=== PATIENT | female | born 1990 | race African-American/Black ===

== ENCOUNTER 2025-01-14 16:53 | Emergency (ER) | payer MEDICARE, MEDICAID, SELFPAY ==
[2025-01-14] VITALS (9 sets, daily range): BP systolic 118–160; BP diastolic 74–102; PULSE 75–94; RESP 15–21; TEMP 36.6–37.1; O2SAT 97–99
--- NOTE | 2025-01-14 17:00 | RT.EKG_ITS ---
APPROVED REPORT Exam: Resting ECG Reason for Exam: Back Pain Patient Location: E HR:87 bpm ECG Measurements Heart Rate 87 AXIS MD 165 P 15 QRSd 96 QRS -6 QT 349 T 40 QTc 420 Conclusion Sinus rhythm...normal P axis, V-rate 60- 99
--- NOTE | 2025-01-14 17:15 | DI.CT_ITS ---
Exam(s) CT CHEST PE ABD PELVIS W EXAM: CT CHEST PE ABD PELVIS W CLINICAL HISTORY: right sided chest and abdomen pain. TECHNIQUE: Imaging Protocol: Axial computed tomography images with coronal and sagittal reformatted images were created and reviewed. Computer aided detection (CAD) was utilized. CONTRAST MATERIAL: Intravenous: Omnipaque 350 Contrast volume:99 ml Oral: no COMPARISON: No exams were available for comparison FINDINGS: CHEST: Pulmonary parenchyma: No consolidation. No dominant measurable mass. Tracheobronchial tree: No bronchiectasis. No mucous plugging.No bronchial wall thickening. Pleura: No effusion or pneumothorax. Mediastinum: Within normal limits. Pulmonary arteries: No visible emboli. Cardiovascular: No pericardial effusion. Thoracic aorta non-dilated. Bones: Unremarkable for age. No lytic or blastic lesions.No compression fractures. Soft tissues: Unremarkable. ABDOMEN and PELVIS: Liver: Mildly enlarged. Mild hepatic steatosis. No suspicious mass. Gallbladder and biliary tract: Gallbladder is collapse. No evidence of stones or wall thickening. N o biliary dilatation. Pancreas: Normal density, no abnormal calcifications or inflammatory process. Spleen: Normal. Kidneys: Normal size, contour and axis. No radiodense stones. No obstructive uropathy. No suspicious masses seen. Adrenal glands: No masses seen. Aorta: Abdominal portion non-dilated. Lymph nodes: Within normal limits. Soft tissues: Increased areas of density bilaterally in the subcutaneous fat of the buttock likely se condary to injections. scar. Bladder: Nearly empty but unremarkable. Bowel: No obstruction or bowel wall thickening. Suture material of base of appendix. Peritoneal cavity: Trace fluid in the pelvis, physiologic. No focal collection. No mesenteric infla mmatory response. No free air. Bones: Unremarkable for age. Reproductive organs: Unremarkable for age. Follicle left ovary. Tampon in vagina. IMPRESSION: No acute abnormality in the chest, abdomen or pelvis. RADIATION DOSE DELIVERED: Total DLP DATA REPOSITORY: All CT scans at this facility are submitted to the National Radiology Data Registry (NRDR) Dose Index Registry (DIR) with the [employer] (ACR). RADIATION OPTIMIZATION: All CT scans at this facility use at least one of these dose optimization te chniques: automated exposure control; mA and/or kV adjustment per patient size (includes targeted exa ms where dose is matched to clinical indication); or iterative reconstruction.
--- NOTE | 2025-01-14 17:26 | ED.GENADUL_ITS ---
Discharge Plan Disposition Patient Disposition: Home Condition: Stable Discharge Details Clinical Impression: Abdominal pain, Chest pain ED Provider: Dejan Garcia Home Meds and New Rx's Prescriptions: New omeprazole 20 mg capsule,delayed release(DR/EC) 20 mg PO DAILY Qty: 30 0RF ondansetron 4 mg tablet,disintegrating 4 mg PO Q8H PRN (Reason: nausea and vomiting) Qty: 30 0RF Continued quetiapine [Seroquel] 400 mg tablet 500 mg PO DAILY Discharge Instructions Additional Instructions: Your blood work and CAT scan did not show any concerning findings. If the symptoms continue this week follow-up with either your primary care provider or urgent/express care. You can take the omeprazole daily, this is also available [id number]. If you feel more ill, or have persistent vomiting despite the ondansetron or high fevers return to the emergency department for reevaluation HPI General Mode of arrival: ambulatory . Date/Time Provider Initiated Documentation: 01/14/25 17:03 . Limitations to Documentation: no limitations . Information obtained by: patient . History of Present Illness 34 year old F presents to the emergency department with the chief complaint of abdominal pain, described as moderate, and is localized to the abdomen. Patient started experiencing this hour(s) (2) and it has been constant. No relieving factors improve symptom(s), No exacerbating factors reported . Patient notes chest pain and nausea/vomiting. Patient did receive the following treatments prior to arrival, none Related Data Home Medications ?Medication ?Instructions ?Recorded ?Confirmed omeprazole 20 mg capsule,delayed 20 mg PO DAILY #30 caps 01/14/25 release ondansetron 4 mg disintegrating 4 mg PO Q8H PRN nausea and 01/14/25 tablet vomiting #30 tabs quetiapine 400 mg tablet (Seroquel) 500 mg PO DAILY 01/14/25 01/14/25 Previous Rx's ?Medication ?Instructions ?Recorded omeprazole 20 mg capsule,delayed 20 mg PO DAILY #30 caps 01/14/25 release ondansetron 4 mg disintegrating 4 mg PO Q8H PRN nausea and 01/14/25 tablet vomiting #30 tabs General Stated Complaint: Abd Prob JAYCEE: 3 Review of Systems All systems reviewed & are unremarkable except as noted in HPI and below Constitutional Constitutional: Denies chills, Denies fever(s) and Denies weakness Cardiovascular Cardiovascular: Reports chest pain and Denies dyspnea Respiratory Respiratory: Denies cough and Denies dyspnea Gastrointestinal Gastrointestinal: Reports abdominal pain, Reports nausea and Reports vomiting Musculoskeletal Musculoskeletal: Denies joint swelling Neurologic Neurologic: Denies weakness Exam Const General: no acute distress Orientation: alert [facility] Head: normal to inspection Ears: external ears normal General nose exam: external nose normal Mouth: moist mucous membranes Eyes General: appearance normal, both eyes and all related structures Neck Neck: normal visual inspection Chest Chest: normal inspection of the chest Resp Effort & Inspection: normal respiratory effort and able to speak in complete sentences Auscultation: clear to auscultation bilaterally Cardio Jugular venous pressure: no JVD Rate: regular rate Heart Sounds: no murmurs GI Palpation: soft and tender Skin General skin exam: no rashes or lesions noted Neuro General: patient alert and patient oriented x3 Extrem General: normal to inspection Psych Mental Status: mental status grossly normal Course Vital Signs Vital signs: Vital Signs Temperature 36.6 C 01/14/25 16:59 Pulse 94 H 01/14/25 16:59 Respiratory Rate 16 01/14/25 16:59 Blood Pressure 160/102 H 01/14/25 16:59 Pulse Oximetry 98 01/14/25 16:59 Temperature 36.6 C 01/14/25 16:59 Pulse 94 H 01/14/25 16:59 Respiratory Rate 16 01/14/25 16:59 Blood Pressure 160/102 H 01/14/25 16:59 Pulse Oximetry 98 01/14/25 16:59 Pain Level 10 01/14/25 16:59 Medical Decision Making 34-year-old female who denies any chronic medical problems and has had a prior appendectomy and C-sections comes in with sudden onset right sided chest and abdomen pain. Also has nausea vomiting. Denies any difficulty breathing. She is stable on arrival. She has tenderness in the right upper quadrant right lower quadrant of her abdomen. She also says that when she takes deep breaths the right lower chest hurts. No JVD or leg swelling. Given the location of the pain severity will obtain CBC, CMP, lipase troponins and hCG and obtain a CT of the chest to evaluate for PE and CT abdomen pelvis to evaluate for entities such as cholecystitis and kidney stone and bowel obstruction Labs and imaging unremarkable, she is laying in bed and feels better. She still has some epigastric discomfort. I will start her on a PPI, but given reassuring workup I feel she can follow-up with either express care or PCP. Return precautions given Differential Diagnosis Differential Diagnosis: Pancreatitis, kidney stone, PE Lab Data Lab results reviewed: Yes I reviewed the patient's lab results. ECG Data Attestation: I personally reviewed and interpreted this ECG (s) as follows: Prior ECG tracings: not available for review Interpretation: Sinus, rate 87, no STEMI Quality:SDOH Health Related Social Needs: No Data to Display PFSH All Active Problems (Updated 01/14/25 @ 19:13 by Dejan Garcia MD) Chest pain (Acute) Abdominal pain (Acute) Social History Smoking/Tobacco Use Status: Never Smoking risk assessment performed?: Yes Alcohol Intake: never Drug use: Never Substance use type: does not use Housing: apartment Do you feel safe at home: Yes Do you feel safe in your relationship?: Yes Additional Social history: baby and friends at side.
[2025-01-14] MEDS: Omnipaque 350 MG/ML 100 ML BTL IJ (17:36)
[2025-01-14] MEDS: Normal Saline - Diluent 50 ML VIAL IJ (17:37)
[2025-01-14 17:54] LABS: Bilirubin Negative (Negative); Blood Negative (Negative); Clarity Clear (Clear); Glucose Negative (Negative); Ketones Trace mg/dL (Negative); Leukocyte Esterase Negative (Negative); Nitrite Negative (Negative); Specific Gravity 1.025 (1.005-1.025); Urobilinogen 0.2 mg/dL (Up to 0.2)
[2025-01-14] MEDS: Ketorolac 15 MG/ML VIAL IVP (18:03)
[2025-01-14] MEDS: Normal Saline 1,000 ML 1000 ML IV (18:03)
[2025-01-14] MEDS: Prochlorperazine 10 MG/2 ML VIAL IVP (18:03)
[2025-01-14 18:08] LABS: Abs Immature Grans 0.02 10^3/uL (0.0-0.06); Absolute Basophil Count 0.08 10^3/uL (0.0-0.2); Absolute Eosinophil Count 0.15 10^3/uL (0.0-0.7); Absolute Lymphocyte Count 2.34 10^3/uL (1.2-3.4); Absolute Monocyte Count 0.67 10^3/uL (0.1-0.8); Absolute Neutrophil Count 5.03 10^3/uL (1.2-6.7); Eosinophils % 1.8 %; HCT 34.5 % (36.0-46.0); HGB 11.2 g/dL (11.2-15.7); Immature Grans % 0.2 %; Lymphocytes % 28.2 %; MCH 27.7 pg (27.0-33.0); MCHC 32.5 % (32.0-36.0); MCV 85 fL (80-95); MPV 9.5 fL (8.0-11.0); Monocytes % 8.1 %; Neutrophils % 60.7 %; Platelet Count 320 10^3/uL (130-400); RBC 4.04 10^6/uL (3.93-5.22); RDW 11.6 % (11.7-14.6); RDW-SD 35.9 fL; WBC 8.29 10^3/uL (4.4-10.8)
[2025-01-14 18:34] LABS: Troponin I 12 ng/L (<or=51)
[2025-01-14 18:38] LABS: ALT 28 U/L (14-59); AST 16 U/L (15-37); Albumin 3.3 g/dL (3.4-5.0); Alkaline Phosphatase 114 U/L (46-116); Anion Gap 7.3 mmol/L (3-11); BUN 13 mg/dL (7-18); Bilirubin, Total 0.2 mg/dL (0.2-1.0); CO2 27.7 mmol/L (21.0-32.0); CREATININE 0.7 mg/dL (0.55-1.02); Calcium 8.7 mg/dL (8.5-10.1); Chloride 105 mmol/L (98-107); Estimated GFR 117.77 (mL/min/1.73m2); Glucose 84 mg/dL (74-106); Lipase 23 U/L (<78); Magnesium 1.8 mg/dL (1.8-2.4); Potassium 3.9 mmol/L (3.5-5.1); Sodium 140 mmol/L (136-145); TSH (W/Ref FT4) 0.71 uIU/mL (0.36-3.74); Total Protein 6.6 g/dL (6.4-8.2)
--- NOTE | 2025-01-14 18:53 | DI.VRAD_ITS ---
PROCEDURE INFORMATION: Exam: CTA Chest With Contrast Exam date and time: 01/14/2025 5:38 PM Age: 34 years old Clinical indication: Other: Right sided chest pain and abdomen pain TECHNIQUE: Imaging protocol: Computed tomographic angiography of the chest with contrast. Exam focused on the arteries. 3D rendering (Not supervised by radiologist): MIP and/or 3D reconstructed images were created by the technologist. Radiation optimization: All CT scans at this facility use at least one of these dose optimization techniques: automated exposure control; mA and/or kV adjustment per patient size (includes targeted exams where dose is matched to clinical indication); or iterative reconstruction. Contrast material: OMNI 350; Contrast volume: 100 ml; Contrast route: INTRAVENOUS (IV); COMPARISON: No relevant prior studies available. FINDINGS: Pulmonary arteries: Pulmonary artery opacification is of good technical quality. No embolism. Aorta: Thoracic aorta is normal in course and caliber. Lungs: Lungs are clear bilaterally. No consolidation or inflammatory features. Pleural spaces: No pleural effusion. No pneumothorax. Heart: Normal heart size. No pericardial effusion. No coronary artery atherosclerotic calcium. Lymph nodes: Unremarkable. No enlarged lymph nodes. Bones/joints: Thoracic skeletal structures are intact. No acute change. Soft tissues: Chest wall soft tissues are unremarkable. IMPRESSION: 1. Clear lungs and pleural space. 2. No pulmonary arterial embolism or thoracic aorta pathology. 3. Normal heart and pericardial structures. 4. Chest wall soft tissue and skeletal structures are unremarkable. PROCEDURE INFORMATION: Exam: CT Abdomen And Pelvis With Contrast Exam date and time: 01/14/2025 5:38 PM Age: 34 years old Clinical indication: Other: Right sided chest pain and abdomen pain TECHNIQUE: Imaging protocol: Computed tomography of the abdomen and pelvis with contrast. Radiation optimization: All CT scans at this facility use at least one of these dose optimization techniques: automated exposure control; mA and/or kV adjustment per patient size (includes targeted exams where dose is matched to clinical indication); or iterative reconstruction. Contrast material: OMNI 350; Contrast volume: 100 ml; Contrast route: INTRAVENOUS (IV); COMPARISON: No relevant prior studies available. FINDINGS: Liver: The liver is normal in size, contour and attenuation. Gallbladder and biliary ducts: Contracted gallbladder. No acute biliary findings. Pancreas: The pancreas is normal in contour and attenuation. Spleen: The spleen is normal in size, contour and attenuation. Adrenal glands: Normal. No mass. Kidneys and ureters: Kidneys are unremarkable bilaterally. No inflammatory features or obstructive uropathy. No calculi. Left renal lateral subcentimeter cortical cysts. No further imaging follow-up recommended. Stomach and bowel: Gastric morphology is unremarkable. No edema. No gastric outlet obstruction.Small bowel loops are normal in course and caliber. There is no mucosal edema or bowel wall thickening. No obstructive features.The colon contains formed fecal material. There is no bowel wall thickening. No inflammatory features. No obstruction. Appendix: Previous appendectomy Intraperitoneal space: Scant free fluid in the pelvic cul-de-sac Vasculature: Unremarkable. No abdominal aortic aneurysm. Lymph nodes: Unremarkable. No enlarged lymph nodes. Urinary bladder: Unremarkable as visualized. Reproductive: Uterus is unremarkable. No dominant adnexal mass or cyst. Small rim enhancing left ovarian cyst measuring 16 x 10 mm on series 26: Image 70. Intra vaginal menstrual tampon is present. Bones/joints: No acute skeletal change. Soft tissues: Abdominal wall soft tissues are unremarkable. IMPRESSION: 1. No acute findings of the abdomen or pelvis. 2. Hepatic steatosis. 3. Intra vaginal menstrual tampon. No significant uterine or adnexal pathology. Nonspecific left ovarian cyst measuring 16 x 10 mm. Dictated and Authenticated by: Asa Rivera MD. Orderin Radha Wylie MD
[2025-01-14] MEDS: Ondansetron O.D.T. 4 MG TABEF, 3 TABS/BTL PO (19:30)
[2025-01-14] MEDS: Omeprazole 20 MG CAPCR PO (19:30)
== END 2025-01-14 19:42 | disposition home or self-care (01) ==
LOC: ER 19:28
PROVIDERS: Emergency Provider Emergency Medicine
DX: R10.13 Epigastric pain (principal); R07.89 Other chest pain; R11.2 Nausea with vomiting, unspecified
CPT/HCPCS: 36415; 71275; 74177; 80053; 81025; 83690; 93005; 96361; 96374; 96375; 99285; 81003; 83735; 84443; 84484; 85025; 93010; J0780; J1885; J3490

== ENCOUNTER 2025-01-22 13:03 | Emergency (ER) | payer MEDICARE, MEDICAID, OTHER, SELFPAY ==
[2025-01-22] VITALS (38 sets, daily range): BP systolic 156–188; BP diastolic 101–118; PULSE 85–108; RESP 11–21; TEMP 36.7; O2SAT 97–100
--- NOTE | 2025-01-22 13:00 | DI.CT_ITS ---
Exam(s) CT HEAD WO EXAM: CT HEAD WO CLINICAL HISTORY: ams. TECHNIQUE: Imaging Protocol: Axial computed tomography images with coronal and sagittal reformatted images were created and reviewed COMPARISON: No exams were available for comparison FINDINGS: There are no skull fractures. There is no fluid in the visualized paranasal sinuses. There is no evidence of intracranial hemorrhage, mass effect, or shift of midline structures. There are no extra-axial fluid collections. The ventricles are not enlarged or shifted and there is no blo od within the ventricular system nor within the basal cisterns. IMPRESSION: No acute intracranial findings on this noninfused CT scan of the brain. Report called by myself to ER 01/22/2025 at 3:28 p.m. RADIATION DOSE DELIVERED: 841.04mGy.cm Total DLP DATA REPOSITORY: All CT scans at this facility are submitted to the National Radiology Data Registry (NRDR) Dose Index Registry (DIR) with the [employer] (ACR). RADIATION OPTIMIZATION: All CT scans at this facility use at least one of these dose optimization te chniques: automated exposure control; mA and/or kV adjustment per patient size (includes targeted exa ms where dose is matched to clinical indication); or iterative reconstruction.
--- NOTE | 2025-01-22 13:30 | RT.EKG_ITS ---
APPROVED REPORT Exam: Resting ECG Reason for Exam: AMS Patient Location: E HR:102 bpm ECG Measurements Heart Rate 102 AXIS SD 203 P 77 QRSd 95 QRS -14 QT 343 T 51 QTc 447 Conclusion Sinus tachycardia [address] changes no stemi
[2025-01-22 13:59] LABS: Abs Immature Grans 0.04 10^3/uL (0.0-0.06); Absolute Basophil Count 0.07 10^3/uL (0.0-0.2); Absolute Lymphocyte Count 2.42 10^3/uL (1.2-3.4); Absolute Neutrophil Count 7.42 10^3/uL (1.2-6.7); Basophils % 0.7 %; Eosinophils % 0.9 %; HCT 39.3 % (36.0-46.0); HGB 12.7 g/dL (11.2-15.7); Immature Grans % 0.4 %; Lymphocytes % 22.7 %; MCH 27.5 pg (27.0-33.0); MCHC 32.3 % (32.0-36.0); MCV 85 fL (80-95); MPV 9.7 fL (8.0-11.0); Monocytes % 5.6 %; Neutrophils % 69.7 %; Platelet Count 354 10^3/uL (130-400); RBC 4.61 10^6/uL (3.93-5.22); RDW 11.9 % (11.7-14.6); WBC 10.65 10^3/uL (4.4-10.8)
[2025-01-22 14:19] LABS: Prothrombin Time 10.4 sec (9.1-11.1)
[2025-01-22 14:22] LABS: Bilirubin Negative (Negative); Blood Negative (Negative); Clarity Clear (Clear); Glucose 100 mg/dL (Negative); Ketones Negative (Negative); Leukocyte Esterase Negative (Negative); Nitrite Negative (Negative); Specific Gravity 1.015 (1.005-1.025); Urobilinogen 0.2 mg/dL (Up to 0.2); pH 6.5 (5-8)
[2025-01-22 14:40] LABS: *AMPHETAMINES SCREEN URINE Negative (Negative); *BARBITURATES SCREEN URINE Negative (Negative); *BENZODIAZEPINES SCREEN URINE Negative (Negative); Cannabinoids THC Negative (Negative); Cocaine Screen,Urine Negative (Negative); METHADONE URINE SCREEN Negative (Negative); OPIATES URINE SCREEN Negative (Negative)
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
--- NOTE | 2025-01-22 14:45 | NUR.NOTE ---
Nursing Note:Patient's home medications being held in pharmacy
[2025-01-22 14:46] LABS: Tricyclic Antidepressants Negative (Negative)
[2025-01-22 14:54] LABS: Acetaminophen < 2 ug/mL (10-30); Salicylate < 2.8 mg/dL (<2.8)
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
[2025-01-22 16:08] LABS: Ammonia < 10 umol/L (11-32)
[2025-01-22 16:17] LABS: ALT 34 U/L (14-59); AST 21 U/L (15-37); Albumin 3.7 g/dL (3.4-5.0); Alkaline Phosphatase 111 U/L (46-116); Anion Gap 10.4 mmol/L (3-11); BUN 8 mg/dL (7-18); Bilirubin, Total 0.3 mg/dL (0.2-1.0); CO2 25.6 mmol/L (21.0-32.0); CREATININE 0.7 mg/dL (0.55-1.02); Calcium 9.4 mg/dL (8.5-10.1); Chloride 103 mmol/L (98-107); Estimated GFR 117.77 (mL/min/1.73m2); Glucose 117 mg/dL (74-106); Magnesium 1.8 mg/dL (1.8-2.4); Sodium 139 mmol/L (136-145); TSH (W/Ref FT4) 1.12 uIU/mL (0.36-3.74); Total Protein 7.5 g/dL (6.4-8.2); Troponin I 5 ng/L (<or=51)
[2025-01-22 16:21] LABS: ETHANOL BLOOD < 3.0 mg/dL (<10)
--- NOTE | 2025-01-22 16:24 | NUR.NOTE ---
Nursing Note:Spoke with Lary from [facility]; new intake # [id number]
[2025-01-22] MEDS: Normal Saline - Diluent 50 ML VIAL IJ (16:25)
[2025-01-22] MEDS: Omnipaque 350 MG/ML 100 ML BTL 70 ML IJ (16:28)
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
[2025-01-22] MEDS: ACETAMINOPHEN 1,000 MG/100 ML BAG 400 MG IVPB (16:53)
[2025-01-22] MEDS: Ondansetron 4 MG/2 ML VIAL IVP (17:14)
[2025-01-22] MEDS: Normal Saline Flush 10 ML SYR IVP (17:15)
[2025-01-22] MEDS: Ketorolac 15 MG/ML VIAL IVP (18:20)
--- NOTE | 2025-01-22 20:34 | NUR.NOTE ---
pt self-caths due to urinary retention. has all equipment with her. Nursing Note:
[2025-01-22] MEDS: Doxycycline Hyclate 100 MG CAP PO (21:39)
[2025-01-22] MEDS: Emtricitabine/Tenofovir 200 mg/300 mg TAB 1 EACH PO (21:39)
[2025-01-22] MEDS: metroNIDAZOLE 500 MG TAB PO (21:39)
[2025-01-23] VITALS (50 sets, daily range): BP systolic 138–197; BP diastolic 76–135; PULSE 68–98; RESP 13–33; TEMP 36.7; O2SAT 94–100
--- NOTE | 2025-01-23 02:05 | NUR.NOTE ---
Nursing Note: RN in to check on patient, patient wakes to touch. No concerns observed at this time. Resting.
--- NOTE | 2025-01-23 04:49 | NUR.NOTE ---
Nursing Note:Pt resting in room, sleeping in bed, sleeping on abdomen. No concerns observed.
[2025-01-23] MEDS: Ondansetron 4 MG/2 ML VIAL IVP (05:11)
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
[2025-01-23] MEDS: Ondansetron O.D.T. 4 MG TABEF PO (09:20)
[2025-01-23] MEDS: metroNIDAZOLE 500 MG TAB PO (09:38)
[2025-01-23] MEDS: Emtricitabine/Tenofovir 200 mg/300 mg TAB 1 EACH PO (09:38)
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
--- NOTE | 2025-01-23 16:30 | DI.RAD_ITS ---
Exam(s) XR PORTABLE CHEST AP EXAM: XR PORTABLE CHEST AP CLINICAL HISTORY: Chest pain. TECHNIQUE: 2D digital imaging was performed. COMPARISON: CT CT CHEST PE ABD PELVIS W from 01/14/2025 FINDINGS: Single AP portable view. Heart size is normal. The mediastinum is not widened. Lungs are clear. No infiltrates nor obvious pleural effusions. IMPRESSION: No acute pulmonary findings on this single AP portable view of the chest. DATA REPOSITORY: RADIATION DOSE DELIVERED:
--- NOTE | 2025-01-23 16:34 | W.ED.FU ---
Follow Up Plan: I was called into this patient's room as she was short of breath. She said that she was dizzy. She has not had anything to eat today beyond crackers. Will order EKG D-dimer troponin and repeat lab work. She remains alert and oriented. I considered CVA however she was neurologically intact so I did not feel that she required a repeat CT head or neurological consultation.
--- NOTE | 2025-01-23 16:45 | RT.EKG_ITS ---
APPROVED REPORT Exam: Resting ECG Reason for Exam: Chest Pain Patient Location: E HR:94 bpm ECG Measurements Heart Rate 94 AXIS WV 196 P 68 QRSd 94 QRS -5 QT 353 T 52 QTc 441 Conclusion Sinus rhythm...normal P axis, V-rate 60- [address] elevation, lateral leads...ST >0.06mV, I aVL V5 V6 No STEMI
[2025-01-23] MEDS: Normal Saline 500 ML IV (17:10)
[2025-01-23] MEDS: Calcium Carbonate *TUMS* 500 MG CHEW 1000 MG PO (17:11)
[2025-01-23 17:20] LABS: Abs Immature Grans 0.04 10^3/uL (0.0-0.06); Absolute Basophil Count 0.03 10^3/uL (0.0-0.2); Absolute Eosinophil Count 0.09 10^3/uL (0.0-0.7); Absolute Monocyte Count 0.51 10^3/uL (0.1-0.8); Absolute Neutrophil Count 5.89 10^3/uL (1.2-6.7); Basophils % 0.4 %; Eosinophils % 1.1 %; HCT 38.7 % (36.0-46.0); HGB 12.5 g/dL (11.2-15.7); Immature Grans % 0.5 %; Lymphocytes % 21.5 %; MCH 27.7 pg (27.0-33.0); MCHC 32.3 % (32.0-36.0); MCV 86 fL (80-95); MPV 9.2 fL (8.0-11.0); Monocytes % 6.1 %; Neutrophils % 70.4 %; Platelet Count 343 10^3/uL (130-400); RBC 4.52 10^6/uL (3.93-5.22); RDW 11.9 % (11.7-14.6); RDW-SD 37.3 fL; WBC 8.36 10^3/uL (4.4-10.8)
[2025-01-23 17:41] LABS: BUN 13 mg/dL (7-18); CREATININE 0.9 mg/dL (0.55-1.02); Calcium 9.1 mg/dL (8.5-10.1); Chloride 103 mmol/L (98-107); Estimated GFR 87.11 (mL/min/1.73m2); Glucose 105 mg/dL (74-106); Potassium 3.8 mmol/L (3.5-5.1); Sodium 140 mmol/L (136-145); Troponin I 7 ng/L (<or=51)
[2025-01-23 17:45] LABS: D-Dimer 457 ng/mlFEU (<500)
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
[2025-01-23 19:14] LABS: Troponin I 6 ng/L (<or=51)
--- NOTE | 2025-01-23 20:00 | NUR.NOTE ---
Nursing Note: pt sitting up in bed, did not eat much, had some crackers, but still feels out of it the pts main concern is getting her child back. This nurse called DCF at the main number: [phone], her case number is # [id number] Spoke to the staff about the next step the pt needs to take in getting her child back. The pt is to call the [facility] office tomorrow after 0730. to go through the court for return of her child who is currently in foster care and is safe. The pt has a ride home per the state/hospital. Currently asking for her phone to be charged. Spoke with primary MD about the pts discharge and she is medically cleared.
--- NOTE | 2025-01-23 21:02 | NUR.NOTE ---
Nursing Note: cyclobenzaprine 5mg celecoxib 200mg x2 bottles zofran 4mg seroquel x2 bottles of 100mg, 1 bottle of 400mg klonopin 0.5mg Haldol 5mg medication given back to the pt
[2025-01-23 22:19] LABS: HIV-1/2 Ag & Ab Screen Negative (Negative)
[2025-01-24 10:37] LABS: Syphilis Serology (RPR) Negative (Negative)
[2025-01-24 12:01] LABS: Chlamydia Result Negative (Negative); GC Result Negative (Negative)
[2025-01-24 12:02] LABS: Chlamydia Result Negative (Negative); GC Result Negative (Negative)
== END 2025-01-23 21:44 | disposition home or self-care (01) ==
PROVIDERS: Emergency Medicine; Emergency Provider Emergency Medicine
DX: R41.82 Altered mental status, unspecified (principal); T76.21XA Adult sexual abuse, suspected, initial encounter; R51.9 Headache, unspecified; M54.2 Cervicalgia; F25.0 Schizoaffective disorder, bipolar type; F43.0 Acute stress reaction; F43.12 Post-traumatic stress disorder, chronic
CPT/HCPCS: 00123; 36415; 70498; 80048; 80053; 80307; 81025; 82962; 87389; 87491; 87591; 93005; 96361; 96365; 96367; 96375; 96376; 99285; 70450; 71045; 80320; 80329; 81003; 82140; 83735; 84443; 84484; 85025; 85379; 85610; 86592; 87480; 87510; 87660; 93010; J0131; J0696; J1885; J2310; J2405; J3490